=== PATIENT | male | born 1985 | race Caucasian/White ===

== ENCOUNTER 2019-06-20 19:44 | Emergency (ER) | payer OTHER ==
[~2019-06-20] VITALS: Ht 180.3 cm; Wt 74.8 kg
[2019-06-20 20:49] LABS: BASO % 0.4 % (0.0-1.0); EOS # 0.1 10*3/uL (0.0-0.4); EOS % 1.3 % (1.0-4.0); HEMATOCRIT 39.5 % (42.0-52.0); HEMOGLOBIN 13.2 g/dl (14.0-18.0); LYMPH # 2.4 10*3/uL (1.3-4.4); LYMPH % 28.3 % (27.0-41.0); MEAN CELL VOLUME 91.2 fl (80.0-94.0); MEAN CORPUSCULAR HGB 30.5 pg (27.0-31.0); MEAN CORPUSCULAR HGB CONC 33.4 g/dl (33.0-37.0); MEAN PLATELET VOLUME 8.6 fl (9.6-12.3); MONO # 0.6 10*3/uL (0.1-1.0); MONO % 7.2 % (3.0-9.0); NEUT # 5.3 10*3/uL (2.3-7.9); NEUT % 62.6 % (47.0-73.0); PLATELET COUNT AUTOMATED 297 10*3/uL (130-400); RED BLOOD COUNT 4.33 10*6/uL (4.50-5.90); RED CELL DISTRI WIDTH 13.1 % (0-14.5); WHITE BLOOD COUNT 8.5 10*3/uL (4.8-10.8)
[2019-06-20 21:05] LABS: BUN 15 mg/dl (7-24); CHLORIDE 103 mmol/L (98-107); CREATININE 0.86 mg/dL (0.70-1.30); POTASSIUM 3.8 mmol/L (3.5-5.1); SODIUM 137 mmol/L (136-145)
[2019-06-20] MEDS ORDERED: CLEOCIN HCL300 MG PO (21:41)
== END 2019-06-20 22:40 | disposition home or self-care (01) ==
LOC: ED 19:44
PROVIDERS: Nurse Practitioner
DX: L03.114 Cellulitis of left upper limb (principal); L03.113 Cellulitis of right upper limb; F15.20 Other stimulant dependence, uncomplicated